=== PATIENT | female | born 1950 | race Caucasian/White ===

== ENCOUNTER 2018-07-17 10:08 | Day surgery (SDC) | payer MEDICARE, OTHER ==
[2018-07-15 16:14] VITALS: BMI 36.3
--- NOTE | 2018-07-17 08:31 | P.GSHP ---
History of Present Illness H&P Date: 07/17/18 CHIEF COMPLAINT: GERD HISTORY OF PRESENT ILLNESS: The patient is a 67-year-old female who presents reports gastroesophageal reflux disease. Upper endoscopy was offered for further evaluation and management. PAST MEDICAL HISTORY: Please see list. PAST SURGICAL HISTORY: Please see list. MEDICATIONS: Please see list. ALLERGIES: Please see list. SOCIAL HISTORY: No illicit drug use FAMILY HISTORY: No reports of Crohn disease or ulcerative colitis. REVIEW OF ORGAN SYSTEMS: CONSTITUTIONAL: No reports of fevers or chills. GI: Denies any blood in stools or constipation. PHYSICAL EXAM: VITAL SIGNS: Stable GENERAL: Well-developed and pleasant in no acute distress. HEENT: No scleral icterus. Extraocular movements grossly intact. Moist buccal mucosa. NECK: Supple without lymphadenopathy. CHEST: Unlabored respirations. Equal bilateral excursions. CARDIOVASCULAR: Regular rate and rhythm. Distal 2+ pulses. ABDOMEN: Soft, nondistended. MUSCULOSKELETAL: No clubbing, cyanosis, or edema. ASSESSMENT: 1. Gastroesophageal reflux disease PLAN: 1. Recommend proceeding with an upper endoscopy Past Medical History Past Medical History: COPD, GERD/Reflux, Hyperlipidemia, Hypertension Additional Past Medical History / Comment(s): OVERACTIVE BLADDER History of Any Multi-Drug Resistant Organisms: None Reported Past Surgical History: Appendectomy, Section, Cholecystectomy, Hysterectomy Additional Past Surgical History / Comment(s): PARTIAL RT LUNG LOBECTOMY. COLONOSCOPY. C-SECT X 3. BILAT CATARACT SX. EGD Past Anesthesia/Blood Transfusion Reactions: No Reported Reaction Smoking Status: Current every day smoker - Past Family History Father Family Medical History: Cancer Sister(s) Family Medical History: Cancer Medications and Allergies Home Medications Medication Instructions Recorded Confirmed Type Albuterol Nebulized [Ventolin 1 each INHALATION DAILY PRN 07/15/18 07/15/18 History Nebulized] Albuterol Sulfate [Proair Hfa] 2 puff INHALATION DAILY PRN 07/15/18 07/15/18 History Calcitriol 0.25 mcg PO DAILY 07/15/18 07/15/18 History Diltiazem HCl [Cartia Xt] 120 mg PO DAILY 07/15/18 07/15/18 History Ferrous Sulfate [Feosol] 325 mg PO BID 07/15/18 07/15/18 History Furosemide [Lasix] 20 mg PO DAILY 07/15/18 07/15/18 History [place]-3 Acid Ethyl Esters [Lovaza] 2 gm PO BID 07/15/18 07/15/18 History Omeprazole [PriLOSEC] 20 mg PO AC-BRKFST 07/15/18 07/15/18 History Oxybutynin Xl [Ditropan Xl] 5 mg PO HS 07/15/18 07/15/18 History Pravastatin Sodium [Pravachol] 80 mg PO HS 07/15/18 07/15/18 History Pregabalin [Lyrica] 150 mg PO QAM 07/15/18 07/15/18 History Pregabalin [Lyrica] 300 mg PO HS 07/15/18 07/15/18 History Ranitidine HCl 150 mg PO DAILY 07/15/18 07/15/18 History Sertraline [Zoloft] 100 mg PO BID 07/15/18 07/15/18 History Umeclidinium [place] [Incruse 62.5 mcg INHALATION DAILY 07/15/18 07/15/18 History Ellipta] methylPREDNISolone Dose Pack 4 mg PO DIRECTED PRN 07/15/18 07/15/18 History [Medrol Dose Pack] Allergies Allergy/AdvReac Type Severity Reaction Status Date / Time metronidazole [From Flagyl] Allergy Rash/Hives Verified 07/15/18 16:03 rosuvastatin [From Crestor] Allergy Rash/Hives Verified 07/15/18 16:03
[~2018-07-17 10:08] MED LIST: LACTATED RINGERS 1,000 ML IV SCH; LIDOCAINE 1% 20 ML VIAL (10MG/ML) FOR IV START INTRADERMA PRN; MIDAZOLAM (PF) 2 MG/2 ML VIAL IV PRN
[2018-07-17 11:22] VITALS: TEMP 98.1
[2018-07-17] MEDS ORDERED: PROPOFOL 10 MG/ML 20 ML VIAL IV ONE (12:09)
[2018-07-17] MEDS ORDERED: LIDOCAINE 1% INJ 10MG/ML (20 ML MDV) ONE (12:09)
--- NOTE | 2018-07-17 12:28 | P.PCN ---
Date of Procedure: 07/17/18 Description of Procedure: PREOPERATIVE DIAGNOSIS: Abnormal computed tomography scan for esophageal mass POSTOPERATIVE DIAGNOSIS: Abnormal computed tomography scan for esophageal mass Gastritis. Gastroesophageal reflux disease. OPERATION: Esophagogastroduodenoscopy with biopsies along antrum. SURGEON: Karla Lopez MD ANESTHESIA: MAC. INDICATIONS: The patient is a 67-year-old female who presents with a history of abnormal computed tomography scan of an esophageal mass. Benefits and risks of the procedure were described. Informed consent was obtained. DESCRIPTION: The patient was brought into the endoscopy suite and laid in the left lateral decubitus position. An Olympus gastroscope was passed along the posterior oropharynx down to the distal esophagus where the squamocolumnar junction was encountered at 40 cm from the incisors. The stomach was entered and no bile reflux was found. Additional findings are listed below. Biopsies with cold forceps were obtained of the antrum. The first through third portion of the duodenum was examined and unremarkable. Retroflexion of the scope confirmed Hill grade 2 lower esophageal valve. The squamocolumnar junction demonstrated no LA grade A erosive esophagitis. The stomach was desufflated. The patient tolerated the procedure well. FINDINGS: Squamocolumnar junction 40 cm from the incisors. Diaphragmatic hiatus at 40 cm. Hill grade 2 lower esophageal valve. No LA grade A erosive esophagitis. No active duodenitis. Chronic gastritis No esophageal mass No gastric mass RECOMMENDATIONS: Upper endoscopy as needed. Plan - Discharge Summary Discharge Rx Participant: Yes New Discharge Prescriptions: No Action Albuterol Nebulized [Ventolin Nebulized] 1 each INHALATION DAILY PRN PRN Reason: Shortness Of Breath Albuterol Sulfate [Proair Hfa] 2 puff INHALATION DAILY PRN PRN Reason: Shortness Of Breath Calcitriol 0.25 mcg PO DAILY Diltiazem HCl [Cartia Xt] 120 mg PO DAILY Ferrous Sulfate [Feosol] 325 mg PO BID Furosemide [Lasix] 20 mg PO DAILY methylPREDNISolone Dose Pack [Medrol Dose Pack] 4 mg PO DIRECTED PRN PRN Reason: Shortness Of Breath [place]-3 Acid Ethyl Esters [Lovaza] 2 gm PO BID Omeprazole [PriLOSEC] 20 mg PO AC-BRKFST Oxybutynin Xl [Ditropan Xl] 5 mg PO HS Pravastatin Sodium [Pravachol] 80 mg PO HS Pregabalin [Lyrica] 150 mg PO QAM Pregabalin [Lyrica] 300 mg PO HS Ranitidine HCl 150 mg PO DAILY Sertraline [Zoloft] 100 mg PO BID Umeclidinium [place] [Incruse Ellipta] 62.5 mcg INHALATION DAILY Discharge Medication List Albuterol Nebulized [Ventolin Nebulized] 1 each INHALATION DAILY PRN 07/15/18 [ History] Albuterol Sulfate [Proair Hfa] 2 puff INHALATION DAILY PRN 07/15/18 [History] Calcitriol 0.25 mcg PO DAILY 07/15/18 [History] Diltiazem HCl [Cartia Xt] 120 mg PO DAILY 07/15/18 [History] Ferrous Sulfate [Feosol] 325 mg PO BID 07/15/18 [History] Furosemide [Lasix] 20 mg PO DAILY 07/15/18 [History] [place]-3 Acid Ethyl Esters [Lovaza] 2 gm PO BID 07/15/18 [History] Omeprazole [PriLOSEC] 20 mg PO AC-BRKFST 07/15/18 [History] Oxybutynin Xl [Ditropan Xl] 5 mg PO HS 07/15/18 [History] Pravastatin Sodium [Pravachol] 80 mg PO HS 07/15/18 [History] Pregabalin [Lyrica] 150 mg PO QAM 07/15/18 [History] Pregabalin [Lyrica] 300 mg PO HS 07/15/18 [History] Ranitidine HCl 150 mg PO DAILY 07/15/18 [History] Sertraline [Zoloft] 100 mg PO BID 07/15/18 [History] Umeclidinium [place] [Incruse Ellipta] 62.5 mcg INHALATION DAILY 07/15/18 [ History] methylPREDNISolone Dose Pack [Medrol Dose Pack] 4 mg PO DIRECTED PRN [History] Follow up Appointment(s)/Referral(s): Karla Lopez MD [STAFF PHYSICIAN] - 07/29/18 (RYAN) Patient Instructions/Handouts: Gastritis (DC), Diet for Stomach Ulcers and Gastritis (ED) Discharge Disposition: HOME SELF-CARE
[2018-07-17 12:54] VITALS: BP 90/61; PULSE 78; RESP 18
== END 2018-07-17 13:05 | disposition home or self-care (01) ==
LOC: ORWHC2ENDO 10:08
PROVIDERS: ATTEND Surgery Plastic and Reconstructive Surgery
DX: K29.50 Unspecified chronic gastritis without bleeding (principal); K21.9 Gastro-esophageal reflux disease without esophagitis; J44.9 Chronic obstructive pulmonary disease, unspecified; F17.210 Nicotine dependence, cigarettes, uncomplicated; Z79.899 Other long term (current) drug therapy; Z88.1 Allergy status to other antibiotic agents; Z88.8 Allergy status to other drugs, medicaments and biological substances
CPT/HCPCS: 88305; 43239; J2001; J2704

== ENCOUNTER 2020-02-24 17:19 | Emergency (ER) | payer MEDICARE, OTHER ==
[2020-02-24] MEDS ORDERED: KETOROLAC 15 MG/ML 1 ML VIAL IM STA (17:58)
[2020-02-24] MEDS ORDERED: ACET/COD 300 MG/30 MG STARTER PACK 6 TAB BTL PO STA (17:58)
[2020-02-24] MEDS ORDERED: methylPREDNISolone SOD SUCCI 125 MG/2 ML VIAL IM ONE (17:58)
--- NOTE | 2020-02-24 18:32 | ED ---
General Adult HPI - General Chief complaint: Back Pain/Injury Stated complaint: back pain Time Seen by Provider: 02/24/20 17:32 Source: patient, RN notes reviewed Mode of arrival: wheelchair Limitations: no limitations - History of Present Illness Initial comments: 69-year-old female presents to the emergency room for a chief complaint of right leg pain 1.5 months. Patient reports that the pain started in her low back and has radiated down her right leg. States it shoots down the right leg. States she saw neurology for this and had an EMG that showed sciatic nerve problems. Patient reports she has another appointment with this physician in March but the pain is getting worse. Motrin is not helping. Patient denies fevers. Denies weakness of the lower extremities. Denies bladder or bowel changes. Denies difficulty ambulating. Denies saddle anesthesia.Patient has no other complaints at this time including shortness of breath, chest pain, abdominal pain, nausea or vomiting, headache, or visual changes. - Related Data Home Medications Medication Instructions Recorded Confirmed Albuterol Nebulized [Ventolin 1 each INHALATION DAILY PRN 07/15/18 07/17/18 Nebulized] Albuterol Sulfate [Proair Hfa] 2 puff INHALATION DAILY PRN 07/15/18 07/17/18 Diltiazem HCl [Cartia Xt] 120 mg PO DAILY 07/15/18 07/17/18 Ferrous Sulfate [Feosol] 325 mg PO BID 07/15/18 07/17/18 Furosemide [Lasix] 20 mg PO DAILY 07/15/18 07/17/18 [place]-3 Acid Ethyl Esters [Lovaza] 2 gm PO BID 07/15/18 07/17/18 Omeprazole [PriLOSEC] 20 mg PO AC-BRKFST 07/15/18 07/17/18 Oxybutynin Xl [Ditropan Xl] 5 mg PO HS 07/15/18 07/17/18 Pravastatin Sodium [Pravachol] 80 mg PO HS 07/15/18 07/17/18 Pregabalin [Lyrica] 150 mg PO QAM 07/15/18 07/17/18 Pregabalin [Lyrica] 300 mg PO HS 07/15/18 07/17/18 Ranitidine HCl 150 mg PO DAILY 07/15/18 07/17/18 Sertraline [Zoloft] 100 mg PO BID 07/15/18 07/17/18 Umeclidinium [place] [Incruse 62.5 mcg INHALATION DAILY 07/15/18 07/17/18 Ellipta] calcitrioL [Calcitriol] 0.25 mcg PO DAILY 07/15/18 07/17/18 methylPREDNISolone Dose Pack 4 mg PO DIRECTED PRN 07/15/18 07/17/18 [Medrol Dose Pack] Previous Rx's Medication Instructions Recorded predniSONE 50 mg PO DAILY #4 tablet 02/24/20 Allergies Allergy/AdvReac Type Severity Reaction Status Date / Time metronidazole [From Flagyl] Allergy Rash/Hives Verified 02/24/20 17:28 rosuvastatin [From Crestor] Allergy Rash/Hives Verified 02/24/20 17:28 Review of Systems ROS Statement: Those systems with pertinent positive or pertinent negative responses have been documented in the HPI. ROS Other: All systems not noted in ROS Statement are negative. Past Medical History Past Medical History: COPD, GERD/Reflux, Hyperlipidemia, Hypertension Additional Past Medical History / Comment(s): OVERACTIVE BLADDER History of Any Multi-Drug Resistant Organisms: None Reported Past Surgical History: Appendectomy, Section, Cholecystectomy, Hysterectomy Additional Past Surgical History / Comment(s): PARTIAL RT LUNG LOBECTOMY. COLONOSCOPY. C-SECT X 3. BILAT CATARACT SX. EGD Past Anesthesia/Blood Transfusion Reactions: No Reported Reaction Past Psychological History: No Psychological Hx Reported Smoking Status: Current every day smoker Past Alcohol Use History: None Reported Past Drug Use History: None Reported - Past Family History Father Family Medical History: Cancer Sister(s) Family Medical History: Cancer General Exam Limitations: no limitations General appearance: alert, in no apparent distress Head exam: Present: atraumatic, normocephalic, normal inspection Eye exam: Present: normal appearance, PERRL, EOMI. Absent: scleral icterus, conjunctival injection, periorbital swelling ENT exam: Present: normal exam, mucous membranes moist Neck exam: Present: normal inspection, full ROM. Absent: tenderness, meningismus, lymphadenopathy Respiratory exam: Present: normal lung sounds bilaterally. Absent: respiratory distress, wheezes, rales, rhonchi, stridor Cardiovascular Exam: Present: regular rate, normal rhythm, normal heart sounds. Absent: systolic murmur, diastolic murmur, rubs, gallop, clicks GI/Abdominal exam: Present: soft, normal bowel sounds. Absent: distended, tenderness, guarding, rebound, rigid Extremities exam: Present: normal capillary refill (Capillary refill less than 2 seconds in the right lower extremity, DP pulses 2+.), other (Sensation intact in the right lower extremity. Positive straight leg raise test.). Absent: calf tenderness (No calf pain or tenderness. No swelling of the right lower extre mity.) Neurological exam: Present: alert Course Vital Signs 02/24/20 17:24 Temperature 98.2 F Pulse Rate 96 Respiratory 20 Rate Blood Pressure 166/83 O2 Sat by Pulse 96 Oximetry Medical Decision Making - Medical Decision Making Patient presents for sciatic nerve pain. Patient had EMG confirming this. Patient has been ongoing for 1.5 months. No red flag symptoms. The patient will be started on prednisone a Tylenol 3. Will follow up with her doctor as directed. Will return here for any worsening symptoms such as bladder or bowel changes, numbness or tingling of the groin, fevers or chills, or weakness of the lower extremities. Patient is agreeable to this. Disposition Clinical Impression: Lumbar radiculopathy Disposition: HOME SELF-CARE Condition: Good Instructions (If sedation given, give patient instructions): Sciatica (ED) Additional Instructions: Please take steroid as directed. Do not take Motrin on the days you are taking the steroid. You may take Tylenol or Tylenol 3. Do not drive while taking Tylenol 3. Follow-up with your doctor. Return to the emergency department for any worsening symptoms. Prescriptions: predniSONE 50 mg PO DAILY #4 tablet Is patient prescribed a controlled substance at d/c from ED?: No Referrals: Marino Last [STAFF PHYSICIAN] - 1-2 days Time of Disposition: 18:31
[2020-02-24 18:46] VITALS: BP 165/83; PULSE 89; RESP 18; TEMP 98.1
== END 2020-02-24 18:45 | disposition home or self-care (01) ==
LOC: EC 17:19
DX: M54.16 Radiculopathy, lumbar region (principal); M54.40 Lumbago with sciatica, unspecified side; J44.9 Chronic obstructive pulmonary disease, unspecified; K21.9 Gastro-esophageal reflux disease without esophagitis; E78.5 Hyperlipidemia, unspecified; I10 Essential (primary) hypertension; F17.200 Nicotine dependence, unspecified, uncomplicated; Z79.51 Long term (current) use of inhaled steroids; Z79.899 Other long term (current) drug therapy; Z88.8 Allergy status to other drugs, medicaments and biological substances; Z88.1 Allergy status to other antibiotic agents; Z98.890 Other specified postprocedural states
CPT/HCPCS: 96372 ×2; 99283; J2930; J1885